=== PATIENT | female | born 2000 | race Caucasian/White ===

== ENCOUNTER 2023-09-06 19:56 | Emergency (ER) | payer BC ==
[~2023-09-06] VITALS: Ht 152.4 cm; Wt 54.4 kg
[2023-09-06] MEDS ORDERED: MAXITROL EYE DRO5 ML OP (20:48)
== END 2023-09-06 21:32 ==
LOC: ER 19:57
DX: S05.31XA Ocular laceration without prolapse or loss of intraocular tissue, right eye, initial encounter (principal); X58.XXXA Exposure to other specified factors, initial encounter; Y93.89 Activity, other specified; Y92.89 Other specified places as the place of occurrence of the external cause; Y99.8 Other external cause status